=== PATIENT | male | born 1960 | race Caucasian/White ===

== ENCOUNTER 2017-03-24 14:56 | Emergency (ER) | payer OTHER ==
[2017-03-24] MEDS: KETOROLAC TROMETHAMINE 60 MG/2 ML VIAL IM ONE (15:20)
[2017-03-24] MEDS: DIAZEPAM 5 MG/ML DISP.SYRIN IM ONE (15:21)
[2017-03-24 18:56] VITALS: BP 122/67
--- NOTE | 2017-05-24 23:11 | ED Physician Documentation ---
General Adult - HISTORIAN Historian: patient - HPI Stated Complaint: LL back pain Chief Complaint: General Adult Onset: hours Timing: still present Severity: moderate Further Comments: yes (Pt is a 56 yo male who was working on a large filter system, leaning forward and using a large blower device. When pt straightened up he developed pain on the L side of his lower back.) - ROS CONST: no problems EYES/ENT: none CVS/RESP: none GI/: none MS/SKIN/LYMPH: back pain - PAST HX Past History: other (DM, HLD) Allergies/Adverse Reactions: Allergies Allergy/AdvReac Type Severity Reaction Status Date / Time No Known Allergies Allergy Verified 03/24/17 15:05 Home Medications: Ambulatory Orders Medication Instructions Recorded Glimepiride [Amaryl] 4 mg PO 0730 03/24/17 Lovastatin [Lovastatin] 20 mg PO HS 03/24/17 diphenhydrAMINE HCL [Benadryl] 25 mg PO DAILY PRN 03/24/17 - SOCIAL HX Smoking History: non-smoker - FAMILY HX Family History: No - VITAL SIGNS Vital Signs: Vital Signs Temp Pulse Resp BP Pulse Ox 88 18 128/70 98 03/24/17 15:01 03/24/17 15:01 08/12/15 10:39 03/24/17 15:01 - REVIEWED ASSESSMENTS Nursing Assessment Reviewed: Yes Vitals Reviewed: Yes Progress - Progress Progress: Toradol 60 mg IM Diazepam 10 mg IM Ibuprofen 200 mg. Take 3 tablet by mouth every 8 hrs with food. ED Results Lab/Radiology - Orders Orders: ED Orders Category Date Time Status Diazepam [Valium] Med 03/24/17 15:12 Discontinued 10 mg IM NOW ONE Ketorolac Tromethamine [Toradol] Med 03/24/17 15:12 Discontinued 60 mg IM NOW ONE General Adult Physical Exam - PHYSICAL EXAM GENERAL APPEARANCE: moderate distress NECK: normal inspection, supple RESPIRATORY: no resp distress, chest non-tender, breath sounds normal CVS: reg rate & rhythm, heart sounds normal BACK: normal inspection, other (Muscle spasm, paraspinal lumbar region) SKIN: warm/dry, normal color EXTREMITIES: non-tender, normal range of motion, no evidence of injury, no edema NEURO: oriented X3, motor nml, sensation nml, other (DTR's wnl) Discharge Clincal Impression: back pain/muscle spasm Referrals: Primary Doctor,No [Primary Care Provider] - 2 Days Home Medications: Ambulatory Orders Glimepiride [Amaryl] 4 mg PO 0730 03/24/17 Lovastatin [Lovastatin] 20 mg PO HS 03/24/17 diphenhydrAMINE HCL [Benadryl] 25 mg PO DAILY PRN 03/24/17 Condition: Good Disposition: 01 HOME, SELF-CARE Decision to Admit: NO Decision Time: 15:50
== END 2017-03-24 15:56 | disposition home or self-care (01) ==
LOC: ED 14:56
DX: M62.830 Muscle spasm of back (principal); M54.89 Other dorsalgia; X50.1XXA Overexertion from prolonged static or awkward postures, initial encounter; Y92.89 Other specified places as the place of occurrence of the external cause; Y93.89 Activity, other specified
CPT/HCPCS: J1885; J3360; 96372; 99282; 99283

== ENCOUNTER 2018-01-12 06:25 | Outpatient (CLI) | payer OTHER ==
[2018-01-12 07:16] LABS: eGFR (African) > 60; eGFR (Non-African) > 60
== END 2018-01-12 09:21 ==
LOC: LAB 06:25
PROVIDERS: ATTEND Physician Assistant
DX: E11.9 Type 2 diabetes mellitus without complications (principal); Z13.6 Encounter for screening for cardiovascular disorders
CPT/HCPCS: 36415; 80053; 80061; 83036